=== PATIENT | female | born 1990 | race Caucasian/White ===

== ENCOUNTER 2019-07-14 14:45 | Observation (INO) | payer MEDICAID ==
[~2019-07-14] VITALS: Ht 157.5 cm; Wt 90.5 kg
[~2019-07-14 14:45] MED LIST: CEPH500 PO; PRENATALS
[2019-07-14 16:17] VITALS: BP 108/59
== END 2019-07-14 16:29 | disposition home or self-care (01) ==
LOC: 4S 14:45
PROVIDERS: ADMIT Obstetrics & Gynecology; ATTEND Obstetrics & Gynecology
DX: Z04.3 Encounter for examination and observation following other accident (principal); Z3A.32 32 weeks gestation of pregnancy
CPT/HCPCS: 81002; G0378

== ENCOUNTER 2019-07-19 14:00 | Observation (INO) | payer MEDICAID ==
[~2019-07-19] VITALS: Ht 162.6 cm; Wt 90.3 kg
[2019-07-19 14:29] VITALS: BP 106/56
== END 2019-07-19 15:30 | disposition home or self-care (01) ==
LOC: 4S 14:00
PROVIDERS: ADMIT Obstetrics & Gynecology; ATTEND Obstetrics & Gynecology
DX: O09.93 Supervision of high risk pregnancy, unspecified, third trimester (principal); Z3A.33 33 weeks gestation of pregnancy
CPT/HCPCS: 76805; G0378

== ENCOUNTER 2019-07-27 14:41 | Observation (INO) | payer MEDICAID ==
[~2019-07-27] VITALS: Ht 157.5 cm; Wt 92.5 kg
[2019-07-27 15:38] VITALS: BP 118/92
[2019-07-27] MEDS ORDERED: PREN-217 PO (15:40)
== END 2019-07-27 15:35 | disposition home or self-care (01) ==
LOC: 4S 14:41
PROVIDERS: ADMIT Obstetrics & Gynecology; ATTEND Obstetrics & Gynecology
DX: Z34.93 Encounter for supervision of normal pregnancy, unspecified, third trimester (principal); Z3A.34 34 weeks gestation of pregnancy

== ENCOUNTER 2019-07-29 10:10 | Observation (INO) | payer MEDICAID ==
[~2019-07-29] VITALS: Ht 160 cm; Wt 91.6 kg
[~2019-07-29 10:10] MED LIST changes: +PREN-217 PO
[2019-07-29 10:53] VITALS: BP 111/62
== END 2019-07-29 11:40 | disposition home or self-care (01) ==
LOC: 4S 10:10
PROVIDERS: ADMIT Obstetrics & Gynecology; ATTEND Obstetrics & Gynecology
DX: Z34.93 Encounter for supervision of normal pregnancy, unspecified, third trimester (principal); Z87.59 Personal history of other complications of pregnancy, childbirth and the puerperium; Z3A.34 34 weeks gestation of pregnancy
CPT/HCPCS: 81002; G0378

== ENCOUNTER 2019-07-29 12:18 | Observation (INO) | payer MEDICAID ==
[~2019-07-29] VITALS: Ht 157.5 cm; Wt 91.6 kg
[~2019-07-29 12:18] MED LIST changes: -CEPH500 PO
== END 2019-08-02 10:50 | disposition home or self-care (01) ==
LOC: 4S 08-02 10:49
PROVIDERS: ADMIT Obstetrics & Gynecology; ATTEND Obstetrics & Gynecology
DX: Z34.93 Encounter for supervision of normal pregnancy, unspecified, third trimester (principal); Z3A.35 35 weeks gestation of pregnancy

== ENCOUNTER 2019-08-09 10:46 | Observation (INO) | payer MEDICAID ==
[2019-08-09 12:07] VITALS: BP 111/58
[2019-08-09] MEDS ORDERED: BUPIVACAINE HCL/DEX-WATER/PF 0.75% 2 ML AMP ONE (12:13)
== END 2019-08-09 11:55 | disposition home or self-care (01) ==
LOC: 4S 10:46
PROVIDERS: ADMIT Obstetrics & Gynecology; ATTEND Obstetrics & Gynecology
DX: Z34.93 Encounter for supervision of normal pregnancy, unspecified, third trimester (principal); Z3A.35 35 weeks gestation of pregnancy
CPT/HCPCS: 81002; G0378; J3490

== ENCOUNTER 2019-08-16 08:46 | Observation (INO) | payer MEDICAID ==
[2019-08-16 09:34] VITALS: BP 114/72
== END 2019-08-16 10:40 | disposition home or self-care (01) ==
LOC: 4S 08:46
PROVIDERS: ADMIT Obstetrics & Gynecology; ATTEND Obstetrics & Gynecology
DX: O09.93 Supervision of high risk pregnancy, unspecified, third trimester (principal); Z3A.38 38 weeks gestation of pregnancy
CPT/HCPCS: 36415; 76805; 81002; 89060; G0378

== ENCOUNTER 2019-08-19 10:40 | Observation (INO) | payer MEDICAID ==
[~2019-08-19] VITALS: Ht 160 cm; Wt 92.5 kg
[2019-08-19 11:02] VITALS: BP 109/68
== END 2019-08-19 11:50 | disposition home or self-care (01) ==
LOC: 4S 10:40
PROVIDERS: ADMIT Obstetrics & Gynecology; ATTEND Obstetrics & Gynecology
DX: Z34.93 Encounter for supervision of normal pregnancy, unspecified, third trimester (principal); Z87.59 Personal history of other complications of pregnancy, childbirth and the puerperium; Z3A.38 38 weeks gestation of pregnancy
CPT/HCPCS: 81002; G0378

== ENCOUNTER 2019-08-19 23:40 | Observation (INO) | payer MEDICAID ==
[~2019-08-19] VITALS: Ht 157.5 cm; Wt 92.5 kg
[2019-08-20] MEDS ORDERED: RINGERS SOLUTION,LACTATED 1,000 ML IV ONE (00:30)
[2019-08-20] MEDS ORDERED: NIFEdipine 10 MG CAPSULE PO ONE (00:30)
[2019-08-20 01:13] VITALS: BP 122/72
== END 2019-08-20 02:15 | disposition home or self-care (01) ==
LOC: 4S 23:40
PROVIDERS: ADMIT Obstetrics & Gynecology; ATTEND Obstetrics & Gynecology
DX: O62.9 Abnormality of forces of labor, unspecified (principal); Z3A.38 38 weeks gestation of pregnancy
CPT/HCPCS: 81002; G0378; J7120

== ENCOUNTER 2019-08-23 08:49 | Observation (INO) | payer MEDICAID ==
[~2019-08-23] VITALS: Ht 160 cm; Wt 93.0 kg
[2019-08-23 09:05] VITALS: BP 108/69
[2019-08-23] MEDS ORDERED: RINGERS SOLUTION,LACTATED 1,000 ML IV ONE (10:48)
== END 2019-08-23 09:55 | disposition home or self-care (01) ==
LOC: 4S 08:49
PROVIDERS: ADMIT Obstetrics & Gynecology; ATTEND Obstetrics & Gynecology
DX: O36.4XX1 Maternal care for intrauterine death, fetus 1 (principal); Z3A.38 38 weeks gestation of pregnancy
CPT/HCPCS: G0378; J7120

== ENCOUNTER 2019-08-25 08:30 | Observation (INO) | payer MEDICAID ==
[2019-08-25 11:48] VITALS: BP 105/64
== END 2019-08-25 11:50 | disposition home or self-care (01) ==
LOC: 4S 10:57
PROVIDERS: ADMIT Obstetrics & Gynecology; ATTEND Obstetrics & Gynecology
DX: O36.4XX1 Maternal care for intrauterine death, fetus 1 (principal); Z3A.38 38 weeks gestation of pregnancy

== ENCOUNTER 2019-08-27 06:14 | Inpatient (IN) | payer MEDICAID ==
[~2019-08-27] VITALS: Ht 157.5 cm; Wt 94.3 kg
[2019-08-27] MEDS ORDERED: RINGERS SOLUTION,LACTATED 1,000 ML IV ONE (06:16)
[2019-08-27] MEDS ORDERED: METOCLOPRAMIDE HCL 5 MG/ML 2 ML VIAL IVP ONE (06:30)
[2019-08-27] MEDS ORDERED: CITRIC ACID/SODIUM CITRATE 30 ML SOLUTION UDCUP PO ONE (06:30)
[2019-08-27 06:44] VITALS: BP 109/66
[2019-08-27 07:03] LABS: BASOPHILS % (AUTO) 0.6 % (0.0-2.0); EOSINOPHILS % (AUTO) 0.4 % (1.0-6.0); HEMATOCRIT 39.3 % (36-46); HEMOGLOBIN 13.7 g/dL (12.0-16.0); LYMPHOCYTES # (AUTO) 1.7 K/uL (1.0-4.8); LYMPHOCYTES % (AUTO) 32.7 % (22.0-44.0); MEAN CORPUSCULAR HGB CONC 34.9 G/dL (31.0-37.0); MEAN CORPUSCULAR VOLUME 95 fL (80-100); MONOCYTES # (AUTO) 0.4 K/uL (0.1-1.0); MONOCYTES % (AUTO) 8.3 % (2.0-9.0); PLATELET COUNT (AUTO) 118 K/uL (150-450); RED BLOOD CELL COUNT(AUTO) 4.16 MIL/uL (4.00-5.20); RED CELL DISTRIBUTION WIDTH 13.7 % (11.5-14.5)
[2019-08-27] MEDS ORDERED: DEXAMETHASONE SOD PHOS 4 MG/ML VIAL IVP PRN (09:00)
[2019-08-27] MEDS ORDERED: MEPERIDINE-PF 25 MG/ML VIAL IVP PRN (09:00)
[2019-08-27] MEDS ORDERED: NALBUPHINE HCL 10 MG/ML VIAL IVP PRN ×3 (09:00→09:45)
[2019-08-27] MEDS ORDERED: ONDANSETRON HCL 4 MG/2 ML VIAL IVP PRN ×2 (09:00→09:45)
[2019-08-27] MEDS ORDERED: ACETAMINOPHEN 1000 MG/ISO-OSM 100 ML IV ONE (09:00)
[2019-08-27] MEDS ORDERED: FentaNYL CITRATE-PF 100 MCG/2 ML VIAL IVP PRN ×4 (09:00→09:45)
[2019-08-27] MEDS ORDERED: DiphenhydrAMINE HCL 50 MG/ML VIAL IVP PRN ×2 (09:00→09:45)
[2019-08-27] MEDS ORDERED: GUM MASTIC/STORAX/MSAL/ALCOHOL LIQUID 0.67 ML VIAL TP ONE (09:13)
[2019-08-27] MEDS ORDERED: METHYLERGONOVINE MALEATE 0.2 MG/ML VIAL ONE (09:39)
[2019-08-27] MEDS ORDERED: METHYLERGONOVINE MALEATE 0.2 MG/ML VIAL IM ONE (09:45)
[2019-08-27] MEDS ORDERED: NALOXONE HCL 0.4 MG/ML VIAL IVP PRN (09:45)
[2019-08-27] MEDS ORDERED: MORPHINE SULFATE 10 MG/ML SYRINGE IVP PRN (09:45)
[2019-08-27] MEDS ORDERED: OXYTOCIN 30 UNITS/LACT RINGERS 500 ML IV ONE (10:16)
[2019-08-27] MEDS ORDERED: OxyCODONE HCL/ACETAMINOPHEN 5-325 MG TABLET PO PRN ×2 (10:30)
[2019-08-27] MEDS ORDERED: LANOLIN 7 GM OINTMENT TP PRN (10:30)
[2019-08-27] MEDS ORDERED: MISOPROSTOL 100 MCG TABLET ONE ×4 (11:15→11:22)
[2019-08-27] MEDS ORDERED: OXYTOCIN 20 UNITS/LACT RINGERS 1,000 ML IV ONE ×2 (11:20→11:30)
[2019-08-27] MEDS ORDERED: MISOPROSTOL 100 MCG TABLET PO ONE (11:30)
[2019-08-27] MEDS ORDERED: TRANEXAMIC ACID 1,000 MG in DEXTROSE 5%-WATER 50 ML IV ONE (11:30)
[2019-08-27] MEDS ORDERED: MEPERIDINE-PF 25 MG/ML VIAL IVP ONE (11:30)
[2019-08-27] MEDS ORDERED: MISOPROSTOL 100 MCG TABLET PR ONE (11:30)
[2019-08-27] MEDS ORDERED: MORPHINE SULFATE/PF 0.5 MG/ML 10 ML AMP IVP ONE (12:00)
[2019-08-27] MEDS ORDERED: FentaNYL CITRATE-PF 100 MCG/2 ML VIAL IVP ONE (12:00)
[2019-08-27] MEDS ORDERED: ONDANSETRON HCL 4 MG/2 ML VIAL IVP ONE (12:00)
[2019-08-27] MEDS ORDERED: OXYTOCIN 10 UNITS/ML VIAL IM ONE (12:00)
[2019-08-27] MEDS ORDERED: 0.9% SODIUM CHLORIDE 10 ML VIAL IVP ONE (12:00)
[2019-08-27] MEDS ORDERED: EPHEDrine SULFATE 50 MG/ML VIAL IM ONE (12:00)
[2019-08-27] MEDS: RINGERS SOLUTION,LACTATED 1,000 ML IV SCH ×2 (12:14→20:25)
[2019-08-27] MEDS ORDERED: OXYGEN THERAPY IH SCH ×2 (20:00)
[2019-08-27] MEDS: ACETAMINOPHEN 1000 MG/ISO-OSM 100 ML IV SCH (22:04)
[2019-08-28] MEDS: ACETAMINOPHEN 1000 MG/ISO-OSM 100 ML IV SCH (03:40)
[2019-08-28 05:31] LABS: BASOPHILS % (AUTO) 0.4 % (0.0-2.0); EOSINOPHILS % (AUTO) 0.4 % (1.0-6.0); HEMATOCRIT 35.3 % (36-46); LYMPHOCYTES # (AUTO) 1.7 K/uL (1.0-4.8); LYMPHOCYTES % (AUTO) 20.5 % (22.0-44.0); MEAN CORPUSCULAR HEMOGLOBIN 32.5 pg (26.0-34.0); MEAN CORPUSCULAR HGB CONC 34.1 G/dL (31.0-37.0); MEAN CORPUSCULAR VOLUME 95 fL (80-100); MONOCYTES # (AUTO) 0.4 K/uL (0.1-1.0); MONOCYTES % (AUTO) 5.4 % (2.0-9.0); NEUTROPHILS % (AUTO) 73.3 % (40.0-70.0); PLATELET COUNT (AUTO)-OB 131 K/uL (150-450); RED CELL DISTRIBUTION WIDTH 13.7 % (11.5-14.5)
[2019-08-28] MEDS: IBUPROFEN 800 MG TABLET PO PRN ×3 (08:57→22:13)
[2019-08-28] MEDS: MAGNESIUM HYDROXIDE SUSPENSION 30 ML UDCUP PO SCH ×2 (08:58→22:10)
[2019-08-29] MEDS: IBUPROFEN 800 MG TABLET PO PRN ×2 (06:28→12:07)
[2019-08-29] MEDS: MAGNESIUM HYDROXIDE SUSPENSION 30 ML UDCUP PO SCH (09:37)
[2019-08-29] MEDS ORDERED: DOCU100C33 PO (12:27)
[2019-08-29] MEDS ORDERED: IBUP-2124 PO (12:27)
[2019-08-29] MEDS ORDERED: HYDR-4455 PO (12:28)
== END 2019-08-29 15:20 | disposition home or self-care (01) | DRG 540 ==
LOC: 4S 06:14 → PREOBSVTOIN 10-30 06:19
PROVIDERS: ADMIT Obstetrics & Gynecology; ATTEND Obstetrics & Gynecology
PROC: 10D00Z1 Extraction of Products of Conception, Low, Open Approach (ICD-10-PCS; principal; 2019-08-27)
DX: O34.211 Maternal care for low transverse scar from previous cesarean delivery (principal); Z37.0 Single live birth; Z3A.39 39 weeks gestation of pregnancy
CPT/HCPCS: 86850; 86900; 86901; 86920; 87081; J0131; J0690; J2175; J2210; J2274; J2405; J2590; J2765; J3010; J3490; J7060; J7120